=== PATIENT | female | born 1995 | race Caucasian/White ===

== ENCOUNTER 2019-08-20 20:17 | Outpatient (CLI) | payer OTHER, MEDICAID ==
--- NOTE | 2019-08-21 06:08 | Ultrasound Report ---
Reason: POSITIVE TEST Procedure Date: 08/20/2019 Accession Number: [id number] / [id number] Procedure: US - OB First Trimester CPT Code: Final Report FULL RESULT: EXAM: FIRST TRIMESTER OBSTETRIC ULTRASOUND (Less than 11 weeks) EXAM DATE: 08/20/2019 09:17 PM. CLINICAL HISTORY: POSITIVE TEST. LMP: Unknown. COMPARISONS: None. TECHNIQUE: Transabdominal and transvaginal ultrasound examination with static image documentation. CLINICAL DATES: EGA 7 weeks 6 days with WILLY 04/01/2020 based on LMP. ASSESSMENT: Gestational Sac: Single intrauterine. Mean gestational sac diameter: 14 mm = 6 weeks 2 days. Embryo: CRL (crown-rump length) 2-3 mm = 5 weeks 6 days. Cardiac activity: 124 beats per minute. Yolk sac: 2 mm. Amniotic fluid: Not accurately assessed at this gestational age. Early placenta: Not visible at this gestational age. Other: Couple small perigestational collections measuring 0.5 x 0.4 and 0.7 x 0.5 cm. MATERNAL STRUCTURES: Uterus: Anteverted. Unremarkable. Cervix: Closed. Right Ovary/Adnexa: The ovary measures 5.1 x 3.2 x 4.9 cm, volume 41.5 cc. Corpus luteal cyst measures 3.1 x 3.1 x 3.3 cm. Left Ovary/Adnexa: The ovary measures 2.8 x 1.4 x 3.5 cm, volume 7.2 cc. Unremarkable. Free Fluid: None. Other: None. IMPRESSION: 1. Single viable intrauterine at EGA 5 weeks 6 days with WILLY 04/15/2020 based on crown-rump length, which is discoordinate with clinical dates. 2. Assigned dating is WILLY 04/15/2020 based on current ultrasound. RADIA
== END 2019-08-20 20:18 | disposition home or self-care (01) ==
LOC: DI 20:17
PROVIDERS: ATTEND Nurse Practitioner Obstetrics & Gynecology
DX: Z32.01 Encounter for pregnancy test, result positive (principal)
CPT/HCPCS: 76801; 76817

== ENCOUNTER 2019-09-06 16:04 | Emergency (ER) | payer OTHER, MEDICAID ==
[2019-09-06] MEDS ORDERED: SODIUM CHLORIDE 0.9% 1,000 ML IV STA (16:42)
[2019-09-06 17:01] LABS: BASOPHILS % (AUTO) 0.5 %; EOSINOPHILS # (AUTO) 0.1 10^3/uL (0.0-0.7); EOSINOPHILS % (AUTO) 0.9 %; HGB - HEMOGLOBIN 13.5 g/dL (12.0-16.0); LYMPHOCYTES # (AUTO) 1.3 10^3/uL (1.5-3.5); LYMPHOCYTES % (AUTO) 19.7 %; MEAN CORPUSCULAR HEMOGLOBIN 30.9 pg (27.0-31.0); MEAN CORPUSCULAR HGB CONC 35.5 g/dL (32.0-36.0); MEAN PLATELET VOLUME 10.5 fL (7.9-10.8); MONOCYTES # (AUTO) 0.4 10^3/uL (0.0-1.0); MONOCYTES % (AUTO) 6.3 %; NEUTROPHILS # (AUTO) 4.7 10^3/uL (1.5-6.6); NEUTROPHILS % (AUTO) 72.3 %; PLT - PLATELET COUNT 186 10^3/uL (130-450); RED BLOOD COUNT 4.37 10^6/uL (4.20-5.40); RED CELL DISTRIBUTION WIDTH 11.4 % (12.0-15.0); WHITE BLOOD COUNT 6.5 x10^3/uL (4.8-10.8)
[2019-09-06 17:15] LABS: ALBUMIN 4.9 g/dL (3.2-5.5); ALBUMIN/GLOBULIN RATIO 1.4 (1.0-2.2); CALCIUM 9.8 mg/dL (8.5-10.3); CREATININE 0.5 mg/dL (0.4-1.0); TOTAL PROTEIN 8.4 g/dL (6.7-8.2)
[2019-09-06 18:17] LABS: GLUCOSE, URINE (UA) NEGATIVE (NEGATIVE); KETONES,URINE (UA) 40 mg/dL (NEGATIVE); LEUKOCYTE ESTERASE, URINE MODERATE (NEGATIVE); NITRITE,URINE NEGATIVE (NEGATIVE); OCCULT BLOOD,URINE NEGATIVE (NEGATIVE); PH,URINE 6.5 PH (5.0-7.5); PROTEIN,URINE 30 mg/dL (NEGATIVE); UROBILINOGEN,URINE 4 E.U./dL (NORMAL)
[2019-09-06 18:25] LABS: BILIRUBIN,URINE NEGATIVE (NEGATIVE); CLARITY,URINE HAZY (CLEAR); ICTOTEST,URINE NEGATIVE
[2019-09-06] MEDS ORDERED: SODIUM CHLORIDE 0.9% 1,000 ML IV ONE (18:30)
[2019-09-06] MEDS ORDERED: METOCLOPRAMIDE 10 MG/2 ML VIAL IVP STA (18:30)
--- NOTE | 2019-09-06 18:33 | ED Physician Documentation ---
History of Present Illness - Stated complaint Stated Complaint: VOMIT/PREG - Chief complaint Chief Complaint: Abd Pain - History obtained from History obtained from: Patient - History of Present Illness Timing: Today Pain level max: 0 Pain level now: 0 - Additonal information Additional information: 24-year-old female 3 para 2 approximately 8 weeks presents the emergency department with nausea and vomiting today. Took Reglan and Zofran at home without relief. No abdominal pain. No vaginal bleeding or discharge. Sees Rebecca Mcallister for care. Worse with eating and drinking. Nothing makes it better. Review of Systems Constitutional: denies: Fever, Chills Throat: denies: Sore throat Cardiac: denies: Chest pain / pressure Respiratory: denies: Cough GI: denies: Abdominal Pain : denies: Dysuria, Frequency, Hesitancy, Vaginal bleeding Skin: denies: Rash Musculoskeletal: denies: Neck pain, Back pain Neurologic: denies: Headache PD PAST MEDICAL HISTORY - Past Medical History Past Medical History: No - Past Surgical History Past Surgical History: No - Present Medications Home Medications: Ambulatory Orders Medication Instructions Recorded Confirmed Metoclopramide [Reglan] 10 mg PO Q6H PRN #20 tablet 09/06/19 Nitrofurantoin Monohyd/M-Cryst 100 mg PO BID #10 capsule 09/06/19 [Macrobid 100 mg Capsule] - Allergies Allergies/Adverse Reactions: Allergies Allergy/AdvReac Type Severity Reaction Status Date / Time No Known Drug Allergies Allergy Verified 09/06/19 16:10 - Living Situation Living Situation: reports: With family Living Arrangement: reports: At home - Social History Does the pt smoke?: No Does the pt have substance abuse?: No - Family History Family history: reports: Non contributory PD ED PE NORMAL - Vitals Vital signs reviewed: Yes - General General: Alert and oriented X 3, No acute distress, Well developed/nourished - HEENT HEENT: Moist mucous membranes - Neck Neck: Supple, no meningeal sign - Cardiac Cardiac: RRR, Strong equal pulses - Respiratory Respiratory: No respiratory distress, Clear bilaterally - Abdomen Abdomen: Soft, Non tender, Non distended - Back Back: No CVA TTP, No spinal TTP - Derm Derm: Warm and dry, No rash - Extremities Extremities: No edema - Neuro Neuro: Alert and oriented X 3 - Psych Psych: Normal mood, Normal affect Results - Vitals Vitals: Vital Signs - 24 hr 09/06/19 09/06/19 09/06/19 16:10 18:43 20:00 Temperature 36.5 C 37.6 C H 37.2 C Heart Rate 93 71 100 Respiratory 14 18 20 Rate Blood Pressure 133/97 H 116/79 119/83 H O2 Saturation 98 100 98 Oxygen O2 Source Room air - Labs Labs: Laboratory Tests 09/06/19 09/06/19 09/06/19 16:57 16:57 16:57 WBC 6.5 RBC 4.37 Hgb 13.5 Hct 38.0 MCV 87.0 MCH 30.9 MCHC 35.5 RDW 11.4 L Plt Count 186 MPV 10.5 Neut # (Auto) 4.7 Lymph # (Auto) 1.3 L Gregg # (Auto) 0.4 Eos # (Auto) 0.1 Baso # (Auto) 0.0 Absolute Nucleated RBC 0.00 Nucleated RBC % 0.0 Sodium 136 Potassium 3.5 Chloride 101 Carbon Dioxide 24 Anion Gap 11.0 BUN 10 Creatinine 0.5 Estimated GFR (MDRD) 149 Glucose 101 H Calcium 9.8 Total Bilirubin 1.0 AST 28 ALT 34 Alkaline Phosphatase 56 Total Protein 8.4 H Albumin 4.9 Globulin 3.5 Albumin/Globulin Ratio 1.4 Lipase 64 H HCG, Quant 108970.00 Urine Color Urine Clarity Urine pH Ur Specific [place] Urine Protein Urine Glucose (UA) Urine Ketones Urine Occult Blood Urine Nitrite Urine Bilirubin Urine Urobilinogen Ur Leukocyte Esterase Urine RBC Urine WBC Ur Squamous Epith Cells Urine Bacteria Urine Mucus Ur Microscopic Review Urine Culture Comments 09/06/19 18:08 WBC RBC Hgb Hct MCV MCH MCHC RDW Plt Count MPV Neut # (Auto) Lymph # (Auto) Gregg # (Auto) Eos # (Auto) Baso # (Auto) Absolute Nucleated RBC Nucleated RBC % Sodium Potassium Chloride Carbon Dioxide Anion Gap BUN Creatinine Estimated GFR (MDRD) Glucose Calcium Total Bilirubin AST ALT Alkaline Phosphatase Total Protein Albumin Globulin Albumin/Globulin Ratio Lipase HCG, Quant Urine Color DARK YELLOW Urine Clarity HAZY Urine pH 6.5 Ur Specific [place] 1.020 Urine Protein 30 H Urine Glucose (UA) NEGATIVE Urine Ketones 40 H Urine Occult Blood NEGATIVE Urine Nitrite NEGATIVE Urine Bilirubin NEGATIVE Urine Urobilinogen 4 H Ur Leukocyte Esterase MODERATE H Urine RBC 0-5 Urine WBC 6-10 H Ur Squamous Epith Cells MANY Squamous H Urine Bacteria Many H Urine Mucus Moderate Strands Ur Microscopic Review INDICATED Urine Culture Comments NOT INDICATED PD MEDICAL DECISION MAKING - ED course Complexity details: reviewed results, re-evaluated patient, considered differential, d/w patient ED course: Intrauterine on bedside ultrasound, EGA of 8 weeks and 1 day by crown- rump length. heart rate 176 bpm. Images shown to the patient. Patient feels much better after IV fluids and Reglan. Tolerating p.o. without difficulty. Possible contaminated UA, as she is we will place her on Macrobid. Patient is well-appearing, nontoxic. Afebrile. Abdomen is soft, nontender nondistended. No vaginal bleeding. Patient counseled regarding signs and symptoms for which I believe and urgent re-evaluation would be necessary. Patient with good understanding of and agreement to plan and is comfortable going home at this time This document was made in part using voice recognition software. While efforts are made to proofread this document, sound alike and grammatical errors may occur. Departure - Departure Disposition: 01 Home, Self Care Clinical Impression: Urinary tract infection Qualifiers: Urinary tract infection type: acute cystitis Hematuria presence: without hematuria Qualified Code(s): N30.00 - Acute cystitis without hematuria Vomiting Qualifiers: Vomiting type: unspecified Vomiting Intractability: non-intractable Nausea presence: with nausea Qualified Code(s): R11.2 - Nausea with vomiting, unspecified Qualifiers: Weeks of gestation: 8 weeks Qualified Code(s): Z3A.08 - 8 weeks gestation of Condition: Good Instructions: ED Preg Morning Sickness, ED UTI Cystitis Female, ED Nausea Vomiting Follow-Up: Avani Robles ARNP [Primary Care Provider] - Within 1 week Prescriptions: Metoclopramide [Reglan] 10 mg PO Q6H PRN #20 tablet PRN Reason: Nausea / Vomiting Nitrofurantoin Monohyd/M-Cryst [Macrobid 100 mg Capsule] 100 mg PO BID #10 capsule Comments: Return if you worsen. Take all antibiotics until gone. We will increase your Reglan to 10 mg. Follow-up with your doctor for further care. Discharge Date/Time: 09/06/19 20:14
[2019-09-06 18:40] LABS: BACTERIA,URINE Many /HPF (None Seen); MUCUS,URINE Moderate Strands; RBC,URINE 0-5 /HPF (0-5); SQUAMOUS EPITHELIAL CELL,UR MANY Squamous (<= Few)
[2019-09-06] MEDS ORDERED: NITROFURANTOIN MACRO 100 MG CAPSULE PO STA (19:54)
[2019-09-06 20:01] VITALS: BP 119/83
== END 2019-09-06 20:14 | disposition home or self-care (01) ==
LOC: ED 16:04
DX: O23.11 Infections of bladder in pregnancy, first trimester (principal); O21.9 Vomiting of pregnancy, unspecified; Z3A.08 8 weeks gestation of pregnancy
CPT/HCPCS: 36415; 80053; 81001; 83690; 84702; 85025; 96374; 99283; 99284; J2765; 81003; 87086

== ENCOUNTER 2020-02-24 14:45 | Outpatient (CLI) | payer OTHER, MEDICAID | END 2020-02-24 23:59 | disposition home or self-care (01) | LOC: LAB.R 14:45 | PROVIDERS: ATTEND Nurse Practitioner Family | DX: R30.0 Dysuria (principal) | CPT/HCPCS: 87077; 87086; 87181 ==

== ENCOUNTER 2020-03-19 07:00 | Outpatient (CLI) | payer OTHER, MEDICAID | END 2020-03-19 23:59 | disposition home or self-care (01) | LOC: LAB.R 07:00 | PROVIDERS: ATTEND Physician Assistant Medical | DX: R30.0 Dysuria (principal) | CPT/HCPCS: 87086 ==

== ENCOUNTER 2020-04-08 12:04 | Outpatient (CLI) | payer OTHER, MEDICAID ==
--- NOTE | 2020-04-08 12:35 | CT Report ---
PROCEDURE: Abdomen/Pelvis WO INDICATIONS: KIDNEY STONES TECHNIQUE: Noncontrast 5 mm thick sections acquired from the diaphragms to the symphysis. 5 mm coronal and sagi ttal reformats were then performed. For radiation dose reduction, the following was used: automated exposure control, adjustment of mA and/or kV according to patient size. COMPARISON: None. FINDINGS: Image quality: Excellent. ABDOMEN: Lung bases: Lung bases are clear. Heart size is normal. Solid organs: Liver and spleen are normal in size. Gallbladder appears normal. Pancreas is normal in contours. No adrenal nodules. Kidneys are normal in size, without hydronephrosis. A punctate 1 t o 2 mm nonobstructing calculus is seen in the superior pole of the left kidney. Peritoneum and bowel: Unenhanced bowel loops demonstrate normal wall thickness and caliber. No free fluid or air. Nodes and vessels: No retroperitoneal or mesenteric adenopathy by size criteria. Aorta and inferior vena cava are normal in caliber. Miscellaneous: No ventral hernias. PELVIS: Genitourinary: Bladder wall thickness is normal. The uterus is normal in size. No adnexal mass is s een. A tampon is incidentally noted in the vaginal canal. Miscellaneous: No inguinal hernias or adenopathy. Bones: No suspicious bony lesions. No vertebral body compression fractures. IMPRESSION: Punctate 1 to 2 mm nonobstructing calculus in the superior pole of the left kidney. No hydronephrosis . Reviewed by: Roshan Bui MD on 04/08/2020 12:33 PM PDT Approved by: Roshan Bui MD on 04/08/2020 12:33 PM PDT Station ID: [id number]
== END 2020-04-08 12:05 | disposition home or self-care (01) ==
LOC: DI 12:04
PROVIDERS: ATTEND Physician Assistant Medical
DX: N20.0 Calculus of kidney (principal)
CPT/HCPCS: 74176